=== PATIENT | male | born 2000 | race Caucasian/White ===

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

== ENCOUNTER 2019-08-26 15:17 | Emergency (ER) | payer BC, OTHER ==
--- NOTE | 2019-08-26 16:13 | UC ---
UC General HPI - HPI Summary HPI Summary: 19 yo gentleman c/o 7 days R foot pain Walked a lot 7 days ago, and felt pain in R lat foot. Does not recall single point of injury, but pain started afterwards, and has not improved. Taking ibuprofen otc (up to 600mg at a time) but doesn't help that much. No other injury / pain. No known injury hx to this area. No p/d/w. Able to bear weight, but hurts a lot. - History of Current Complaint Stated Complaint: FOOT INJURY Time Seen by Provider: 08/26/19 15:49 Hx Obtained From: Patient - Allergy/Home Medications Allergies/Adverse Reactions: Allergies Allergy/AdvReac Type Severity Reaction Status Date / Time No Known Allergies Allergy Verified 08/26/19 16:22 Home Medications: Home Medications Ibuprofen TAB* [Motrin TAB* 600 MG] 600 mg PO Q8H PRN #30 tab 08/26/19 [Rx] Ibuprofen TAB* [Motrin TAB* 800 MG] 600 mg PO Q6H PRN 08/26/19 [History Confirmed 08/26/19] PMH/Surg Hx/FS Hx/Imm Hx Previously Healthy: Yes - has high foot arches - Surgical History Surgical History: None - Family History Known Family History: Positive: Other - flat foot - Social History Alcohol Use: Rare Substance Use Type: None Smoking Status (MU): Never Smoked Tobacco Review of Systems All Other Systems Reviewed And Are Negative: Yes Constitutional: Positive: Negative Skin: Positive: Negative Eyes: Positive: Negative ENT: Positive: Negative Respiratory: Positive: Negative Cardiovascular: Positive: Negative Gastrointestinal: Positive: Negative Genitourinary: Positive: Negative Motor: Positive: Other - see hpi Neurovascular: Positive: Negative Musculoskeletal: Positive: Arthralgia Neurological/Mental Status: Positive: Negative Psychological: Positive: Negative Is Patient Immunocompromised?: No Physical Exam Triage Information Reviewed: Yes Appearance: Well-Appearing, Well-Nourished Vital Signs Reviewed: Yes Eye Exam: Normal ENT Exam: Normal - grossly normal Neck exam: Normal - no c/o pain Respiratory Exam: Normal - RR normal, no dyspnea, no tachypnea Cardiovascular Exam: Normal - HR normal. DP / PT palpable R foot Abdominal Exam: Normal - no c/o's benign Musculoskeletal Exam: Other - R lat 5th MT + tender to pressure mid- prox metatarsal. Some tender R prox MT head. Walks with limp CR good x 5 digits. No toe tenderness. No calf / tibfib tenderness Neurological Exam: Normal Psychological Exam: Normal - nad Skin Exam: Normal - no eccymosis, no visible or reported rash Course/Dx - Course Course Of Treatment: R foot xray report reviewed with pt. Recommend Cam boot, frequent elevation. Nsaid, add acetaminophen as needed (routine advise to avoid alcohol). Dx R foot pain, xray neg fx. Likely sprain, however stress fracture can not be entirely excluded. D/w pt. Referral sports medicine and orthopedics 1-2 weeks. Questions as posed answered to the best of my ability. - Diagnoses Provider Diagnosis: Foot pain Discharge ED - Sign-Out/Discharge Documenting (check all that apply): Patient Departure All imaging exams completed and their final reports reviewed: Yes - Discharge Plan Condition: Stable Disposition: HOME Prescriptions: Ibuprofen TAB* [Motrin TAB* 600 MG] 600 mg PO Q8H PRN #30 tab PRN Reason: Pain Patient Education Materials: Ibuprofen (By mouth), Foot Sprain (ED) Forms: *Work Release Referrals: Jacob Leonard [Medical Doctor] - Regine Schmidt MD [Primary Care Provider] - Romel Decker MD [Medical Doctor] - Additional Instructions: Follow up with Dr. Esquivel - call tomorrow to let her know how you are doing. Follow up with Sports Medicine or Orthopedics - call tomorrow for appt (telemed or in person) in the next 1-2 weeks. Elevate frequently throughout the day. CAM boot - recommend for 4 weeks, unless otherwise advised by sports medicine or orthopedic doctor. Not all stress fractures are immediately evident. If pain does not improve, or if it worsens, then you might need further imaging. Ibuprofen as needed for pain. Ok to supplement with over the counter acetaminophen (see packaging instructions ). - Billing Disposition and Condition Condition: STABLE Disposition: Home
[2019-08-26 16:27] VITALS: BP 151/77
== END 2019-08-26 17:35 | disposition home or self-care (01) ==
LOC: UCEAST 15:17
DX: M79.671 Pain in right foot (principal)
CPT/HCPCS: 99212; G0463

== ENCOUNTER 2019-12-30 17:26 | Inpatient (IN) ==
[2019-12-30 18:18] LABS: Urine Appearance Cloudy; Urine Bilirubin Negative (Negative); Urine Blood Negative (Negative); Urine Color Yellow; Urine Glucose Negative (Negative); Urine Ketones Negative (Negative); Urine Nitrite Negative (Negative); Urine Protein Negative (Negative); Urine Specific Gravity 1.009 (1.010-1.030); Urine Urobilinogen Negative (Negative)
[2019-12-30 18:45] LABS: Urine Benzodiazepine Screen None Detected (None Detect); Urine Cannabinoids Screen None Detected (None Detect); Urine Opiates Screen None Detected (None Detect)
[2019-12-30 19:03] LABS: ABS Basophils 0.1 10^3/ul (0-0.2); ABS Eosinophils 0.2 10^3/ul (0-0.6); ABS Lymphocytes 1.8 10^3/ul (1.0-4.8); ABS Monocytes 0.8 10^3/ul (0-0.8); Eosinophil % 1.4 %; Hematocrit 47 % (42-52); Hemoglobin 16.1 g/dL (14.0-18.0); Lymphocyte % 15.2 %; Mean Corpuscular HGB Conc 35 g/dL (31-36); Mean Corpuscular Hemoglobin 31 pg (27-31); Mean Corpuscular Volume 91 fL (80-94); Mean Platelet Volume 9.2 fL (7.4-10.4); Platelet Count 239 10^3/uL (150-450); Red Blood Count 5.14 10^6 /uL (4.18-5.48); Red Cell Distribution Width 13 % (10-15); White Blood Count 11.8 10^3/uL (3.5-10.8)
[2019-12-30 19:16] LABS: ALT 29 U/L (7-52); AST 28 U/L (13-39); Albumin 4.9 g/dL (3.2-5.2); Albumin/Globulin Ratio 2.1 (1-3); Alkaline Phosphatase 73 U/L (34-104); Anion Gap 8 mmol/L (2-11); BUN/Creatinine Ratio 14.1 (8-20); Blood Urea Nitrogen 11 mg/dL (6-24); CO2 Carbon Dioxide 27 mmol/L (22-32); Calcium 9.5 mg/dL (8.6-10.3); Chloride 105 mmol/L (101-111); EGFR African American 153.5 (>60); EGFR Non-African American 126.9 (>60); Globulin 2.3 g/dL (2-4); Glucose 95 mg/dL (70-100); Potassium 3.7 mmol/L (3.5-5.0); Sodium 140 mmol/L (135-145); Total Protein 7.2 g/dL (6.4-8.9)
[2019-12-30 19:47] LABS: Acetaminophen < 15 mcg/mL; Alcohol, S < 10 mg/dL (<10); Salicylate < 2.50 mg/dL (<30)
[2019-12-31] MEDS ORDERED: Al Hydrox/Mg Hydrox/Simet LIQ 30 ML UDC PO PRN (06:32)
[2019-12-31] MEDS: Nicotine PATCH 21 MG/24 HR PATCH TRANSDERM SCH (09:10)
[2019-12-31] MEDS: Vitamin THERAPEUTIC TAB PO SCH (09:12)
[2019-12-31] MEDS: Nicotine GUM 2MG FRUIT FLAVOR PO PRN ×2 (09:12→13:04)
[2020-01-01] MEDS: Vitamin THERAPEUTIC TAB PO SCH (08:21)
[2020-01-01 08:49] LABS: HDL Cholesterol 47.8 mg/dL
[2020-01-01] MEDS: Nicotine PATCH 21 MG/24 HR PATCH TRANSDERM SCH (09:46)
[2020-01-01] MEDS: Nicotine GUM 2MG FRUIT FLAVOR PO PRN ×4 (09:46→20:31)
[2020-01-02] MEDS: Vitamin THERAPEUTIC TAB PO SCH (08:42)
[2020-01-02] MEDS: Venlafaxine XR 75 mg PO SCH (08:42)
[2020-01-02] MEDS: Nicotine PATCH 21 MG/24 HR PATCH TRANSDERM SCH (08:43)
[2020-01-02] MEDS: Nicotine GUM 2MG FRUIT FLAVOR PO PRN ×4 (09:20→21:10)
[2020-01-03 08:29] VITALS: BP 111/67
[2020-01-03] MEDS: Vitamin THERAPEUTIC TAB PO SCH (09:23)
[2020-01-03] MEDS: Venlafaxine XR 75 mg PO SCH (09:23)
[2020-01-03] MEDS: Nicotine PATCH 21 MG/24 HR PATCH TRANSDERM SCH (09:24)
[2020-01-03] MEDS: Nicotine GUM 2MG FRUIT FLAVOR PO PRN (09:24)
== END 2020-01-03 10:45 | disposition home or self-care (01) | DRG 751 ==
LOC: ED 17:26 → BSU 12-31 02:54
PROVIDERS: ADMIT Psychiatry & Neurology Psychiatry; ATTEND Psychiatry & Neurology Psychiatry

== ENCOUNTER 2021-04-14 16:33 | Inpatient (IN) ==
[2021-04-14 17:32] LABS: Urine Appearance Cloudy; Urine Bilirubin Negative (Negative); Urine Blood Negative (Negative); Urine Color Yellow; Urine Glucose Negative (Negative); Urine Ketones Negative (Negative); Urine Nitrite Negative (Negative); Urine Protein Negative (Negative); Urine Specific Gravity 1.014 (1.002-1.030); Urine Urobilinogen Negative (Negative)
[2021-04-14 17:45] LABS: Urine Benzodiazepine Screen None Detected (None Detect); Urine Cannabinoids Screen Presumptive Positive (None Detect); Urine Opiates Screen None Detected (None Detect)
[2021-04-14 21:51] LABS: ABS Eosinophils 0.2 10^3/ul (0-0.6); ABS Lymphocytes 2.4 10^3/ul (1.0-4.8); ABS Monocytes 0.5 10^3/ul (0-0.8); ABS Neutrophils 3.2 10^3/ul (1.5-7.7); Eosinophil % 2.6 %; Hematocrit 49 % (42-52); Hemoglobin 16.6 g/dL (14.0-18.0); Mean Corpuscular HGB Conc 34 g/dL (31-36); Mean Corpuscular Hemoglobin 30 pg (27-31); Mean Corpuscular Volume 90 fL (80-94); Mean Platelet Volume 9.2 fL (7.4-10.4); Platelet Count 272 10^3/uL (150-450); Red Blood Count 5.47 10^6 /uL (4.18-5.48); Red Cell Distribution Width 14 % (10-15); White Blood Count 6.3 10^3/uL (3.5-10.8)
[2021-04-14 22:07] LABS: ALT 40 U/L (7-52); AST 25 U/L (13-39); Albumin 4.9 g/dL (3.2-5.2); Albumin/Globulin Ratio 1.9 (1-3); Alkaline Phosphatase 71 U/L (35-149); Anion Gap 6 mmol/L (2-11); Blood Urea Nitrogen 11 mg/dL (6-24); CO2 Carbon Dioxide 28 mmol/L (22-32); Chloride 105 mmol/L (101-111); Globulin 2.6 g/dL (2-4); Glucose 89 mg/dL (70-100); Potassium 3.9 mmol/L (3.5-5.0); Sodium 139 mmol/L (135-145); Total Protein 7.5 g/dL (6.4-8.9); eGFR CKD-EPI 127.8 (>60)
[2021-04-14 22:24] LABS: Acetaminophen < 15 mcg/mL; Alcohol, S < 13 mg/dL (<13); Salicylate < 2.50 mg/dL (<30)
[2021-04-14 22:39] LABS: Rapid COVID-19 Molecular Undetected (Undetected)
[2021-04-14] MEDS ORDERED: Venlafaxine XR 75 mg PO SCH (23:00)
[2021-04-14] MEDS ORDERED: Al Hydrox/Mg Hydrox/Simet LIQ 30 ML UDC PO PRN (23:18)
[2021-04-14] MEDS: Nicotine GUM 2MG FRUIT FLAVOR PO PRN (23:35)
[2021-04-15] MEDS: Nicotine GUM 2MG FRUIT FLAVOR PO PRN ×4 (08:34→20:14)
[2021-04-15] MEDS: Vitamin THERAPEUTIC TAB PO SCH (08:34)
[2021-04-15] MEDS: Venlafaxine XR 75 mg PO SCH (20:14)
[2021-04-16 07:35] LABS: HDL Cholesterol 47.8 mg/dL
[2021-04-16] MEDS: Nicotine GUM 2MG FRUIT FLAVOR PO PRN ×3 (08:00→14:23)
[2021-04-16] MEDS: Vitamin THERAPEUTIC TAB PO SCH (08:00)
[2021-04-16] MEDS: Venlafaxine XR 75 mg PO SCH (19:25)
[2021-04-17] MEDS: Vitamin THERAPEUTIC TAB PO SCH (09:25)
[2021-04-17] MEDS: Venlafaxine XR 75 mg PO SCH (20:55)
[2021-04-18] MEDS: Nicotine GUM 2MG FRUIT FLAVOR PO PRN (08:50)
[2021-04-18] MEDS: Vitamin THERAPEUTIC TAB PO SCH (08:50)
[2021-04-18] MEDS: Venlafaxine XR 75 mg PO SCH (20:10)
[2021-04-19] MEDS: Vitamin THERAPEUTIC TAB PO SCH (09:59)
[2021-04-19] MEDS: Nicotine GUM 2MG FRUIT FLAVOR PO PRN (09:59)
[2021-04-19 11:13] VITALS: BP 121/70
[2021-04-20] MEDS ORDERED: Venlafaxine XR 75 mg PO SCH (09:00)
[2021-04-20] MEDS ORDERED: VENLAFAXINE 150 MG PO SCH (09:00)
== END 2021-04-19 12:24 | disposition home or self-care (01) | DRG 751 ==
LOC: ED 16:33 → BSU 22:44
PROVIDERS: ADMIT Psychiatry & Neurology Psychiatry; ATTEND Psychiatry & Neurology Psychiatry